=== PATIENT | male | born 1980 | race African-American/Black ===

== ENCOUNTER 2020-11-04 16:36 | Emergency (ER) | payer SELFPAY ==
--- NOTE | 2020-11-04 18:32 | RAD REPORT ---
EXAM DESCRIPTION: RAD - Hand Right 3 View - 11/04/2020 6:18 pm CLINICAL HISTORY: Right hand pain FINDINGS: No fracture or dislocation is seen. Third digit soft tissue swelling. No bony destructive lesions seen
--- NOTE | 2020-11-04 18:37 | ER ---
Nurse's Notes [facility] Name: Dilshad Vasquez Age: 40 yrs Sex: Male : 1980 Arrival Date: 11/04/2020 Time: 16:39 Bed 20 Private MD: Diagnosis: Cutaneous abscess of right hand-felon right middle finger Presentation: 11/04 16:53 Chief complaint: Patient states: Swelling and pain to R third finger that began 1 week ss ago. Coronavirus screen: Vaccine status:. Ebola Screen: Patient denies exposure to infectious person. Patient denies travel to an Ebola-affected area in the 21 days before illness onset. Initial Sepsis Screen: Does the patient meet any 2 criteria? No. Patient's initial sepsis screen is negative. Does the patient have a suspected source of infection? Yes: Skin breakdown/wound. Risk Assessment: Do you want to hurt yourself or someone else? Patient reports no desire to harm self or others. Onset of symptoms is unknown. 16:53 Method Of Arrival: Ambulatory ss 16:53 Acuity: NINI 3 ss Historical: - Allergies: 16:54 unknown shingles medication; ss - Home Meds: 16:54 None [Active]; ss - PMHx: 16:54 None; ss - Immunization history:: Client reports having NOT received the Covid vaccine. - Social history:: Smoking status: Patient reports the use of cigarette tobacco products, smokes one-half pack cigarettes per day. Screenin:14 Abuse screen: Denies threats or abuse. Denies injuries from another. Nutritional tr6 screening: No deficits noted. Tuberculosis screening: No symptoms or risk factors identified. Fall Risk None identified. Assessment: 18:13 General: Appears distressed, uncomfortable, Behavior is cooperative, restless. Pain: tr6 Complains of pain in right middle finger. Neuro: No deficits noted. Cardiovascular: No deficits noted. Respiratory: No deficits noted. GI: No deficits noted. : No deficits noted. EENT: No deficits noted. Derm: Abscess located on right middle finger. Musculoskeletal: No deficits noted. 18:33 Reassessment: attempt to arlette finger by FIDEL Griffin. After partially numbing finger pt tr6 states "you know what, i'll go do this my damn self." FIDEL Griffin clarified with pt that he truly wants to sign out and pt said yes. Patient states symptoms have not improved. 18:46 Reassessment: AMA form filled out and explained. pt verbalized understanding. pt states tr6 "all I need is that betadine". Vital Signs: 16:53 Weight 65.77 kg; Height 5 ft. 4 in. (162.56 cm); Pain 10/10; ss 16:55 BP 127 / 91; Pulse 117; Resp 22; Temp 97.9(TE); Pulse Ox 99% on R/A; ss 16:53 Body Mass Index 24.89 (65.77 kg, 162.56 cm) ED Course: 16:39 Patient arrived in ED. mr 16:54 Triage completed. ss 16:54 Arm band placed on left wrist. ss 18:01 Bossman Griffin NP is PHCP. pm1 18:01 Wes Morris MD is Attending Physician. pm1 18:13 Kitty Arriaga RN is Primary Nurse. tr6 18:14 Pt. is pacing. tr6 18:14 Patient has correct armband on for positive identification. Bed in low position. Call tr6 light in reach. Pulse ox on. NIBP on. Door closed. Noise minimized. Visitors limited. Lights dimmed. Moved to private room. 18:14 No provider procedures requiring assistance completed. Patient did not have IV access tr6 during this emergency room visit. Patient maintains SpO2 saturation greater than 95% on room air. 18:18 Hand Right 3 View XRAY In Process Unspecified. EDMS 18:36 Filiberto Ferrell MD is Referral Physician. pm1 Administered Medications: 18:24 Drug: Tetanus-Diphtheria Toxoid Adult 0.5 ml {Enterprise Resource Analyst: Noah. Exp: tr6 05/24/2022. Lot #: [id number]. } Route: IM; Site: left deltoid; 18:26 Drug: Lidocaine (1 %) 5 ml Volume: 5 ml; Route: Infiltration; vg1 Outcome: 18:34 AMA AMA form signed tr6 18:34 Condition: unchanged 18:34 Instructed on follow up and referral plans. no drinking with medication, medication usage, safety practices, wound care, Demonstrated understanding of instructions, follow-up care, medications, wound care, Prescriptions given X 18:47 Patient left the ED. tr6 Signatures: Dispatcher [employer] RIVERA Wilson, Lynn mr Martin, Marleny, RN RN ss Bossman Griffin, PARK GUARD PARK GUARD pm1 Asia Montenegro, RN RN vg1 iKtty Arriaga RN RN tr6
--- NOTE | 2020-11-04 18:37 | EDPHYS ---
Physician Documentation [facility] Name: Dilshad Vasquez Age: 40 yrs Sex: Male : 1980 Arrival Date: 11/04/2020 Time: 16:39 Bed 20 Private MD: ED Physician Wes Morris HPI: 11/04 18:25 This 40 yrs old Black Male presents to ER via Ambulatory with complaints of Infected pm1 Finger. 18:25 Onset: The symptoms/episode began/occurred 3 day(s) ago. Associated signs and symptoms: pm1 Pertinent negatives: fever. Modifying factors: the patient symptoms are aggravated by touching. The patient has not experienced similar symptoms in the past. The patient has not recently seen a physician. Patient reports onset of swelling to right middle finger post paper cut. Historical: - Allergies: 16:54 unknown shingles medication; ss - Home Meds: 16:54 None [Active]; ss - PMHx: 16:54 None; ss - Immunization history:: Client reports having NOT received the Covid vaccine. - Social history:: Smoking status: Patient reports the use of cigarette tobacco products, smokes one-half pack cigarettes per day. ROS: 18:25 Constitutional: Negative for fever, chills, and weight loss, Cardiovascular: Negative pm1 for chest pain, palpitations, and edema, Respiratory: Negative for shortness of breath, cough, wheezing, and pleuritic chest pain. 18:25 Neuro: Negative for headache, weakness, numbness, tingling, and seizure. 18:25 MS/extremity: Positive for pain, swelling, tenderness, Negative for decreased range of motion, deformity. 18:25 Skin: Positive for swelling, of the palmar aspect of distal phalanx of right middle finger. 18:25 All other systems are negative. Exam: 18:25 Constitutional: This is a well developed, well nourished patient who is awake, alert, pm1 and in no acute distress. Head/Face: Normocephalic, atraumatic. 18:25 Cardiovascular: Exam negative for acute changes, Rate: normal, Rhythm: regular, Pulses: no pulse deficits are appreciated. 18:25 Respiratory: Exam negative for acute changes, respiratory distress, shortness of breath. 18:25 Musculoskeletal/extremity: Extremities: grossly normal except: noted in the palmar aspect of middle phalanx of right middle finger and palmar aspect of distal phalanx of right middle finger: swelling, tenderness, There is no evidence of decreased ROM, deformity. 18:25 Skin: Appearance: normal except for affected area, abscess, Felon present to palmar aspect of distal phalanx of right middle finger. 18:25 Neuro: Exam negative for acute changes, Orientation: is normal, Mentation: is normal, Motor: is normal, moves all fours, Sensation: is normal, no obvious gross deficits, Gait: is steady, at a normal pace, without difficulty. Vital Signs: 16:53 Weight 65.77 kg; Height 5 ft. 4 in. (162.56 cm); Pain 10/10; ss 16:55 BP 127 / 91; Pulse 117; Resp 22; Temp 97.9(TE); Pulse Ox 99% on R/A; ss 16:53 Body Mass Index 24.89 (65.77 kg, 162.56 cm) ss MDM: 18:10 Patient medically screened. pm1 18:32 Refusal of service: The patient/guardian displays adequate decision making capability pm1 and despite a detailed discussion of alternatives, benefits, risks, and consequences refuses: digital block and incision and drainage. Patient wants to leave now but advised him to at least him for antibiotic prescription from me and the need to follow up with hand surgeon. 18:32 Data reviewed: vital signs. Data interpreted: Pulse oximetry: on room air is 99 %. pm1 Interpretation: normal. 11/04 18:03 Order name: Hand Right 3 View XRAY; Complete Time: 18:38 eb 11/04 18:11 Order name: Incision \T\ Drainage Setup; Complete Time: 18:26 pm1 Administered Medications: 18:24 Drug: Tetanus-Diphtheria Toxoid Adult 0.5 ml {Mathematics Improvement Teacher: [employer]. Exp: tr6 05/24/2022. Lot #: [id number]. } Route: IM; Site: left deltoid; 18:26 Drug: Lidocaine (1 %) 5 ml Volume: 5 ml; Route: Infiltration; vg1 Disposition Summary: 11/04/20 18:37 Left Against Medical Advice Location: Home pm1 Problem: new pm1 Symptoms: are unchanged pm1 Condition: Undetermined pm1 Diagnosis - Cutaneous abscess of right hand - felon right middle finger pm1 Followup: pm1 - With: Emergency Department - When: As needed - Reason: Worsening of condition Followup: pm1 - With: Filiberto Ferrell MD - When: Tomorrow - Reason: Recheck today's complaints, Continuance of care, Re-evaluation by your physician Discharge Instructions: - Discharge Summary Sheet pm1 - Kait pm1 Prescriptions: - Cephalexin 500 mg Oral Capsule - take 1 capsule by ORAL route every 6 hours for 10 days; 40 capsule; Refills: 0, pm1 Product Selection Permitted - Bactrim DS 800-160 mg Oral Tablet - take 1 tablet by ORAL route every 12 hours for 10 days; 20 tablet; Refills: 0, pm1 Product Selection Permitted - Diclofenac Sodium 75 mg Oral Tablet Sustained Release - take 1 tablet by ORAL route 2 times per day; 30 tablet; Refills: 0, Product pm1 Selection Permitted Addendum: 11/05/2020 20:37 Co-signature as Attending Physician, Wes villanueva a2 Signatures: Dispatcher [employer] EDMarleny Partida, RN RN ss Bossman Griffin, YARD GOODS SALESPERSON YARD GOODS SALESPERSON pm1 Wes Morris MD MD ma2 Asia Montenegro, RN RN vg1 Kitty Arriaga RN RN tr6
[2020-11-04] MEDS ORDERED: TETANUS & DIPHTHERIA TOX,ADULT 0.5 ML VIAL ONE (18:40)
[2020-11-04] MEDS ORDERED: LIDOCAINE 1% MPF 5 ML VIAL ONE (18:40)
[2020-11-04 19:00] VITALS: BP 127/91; TEMP 97.9; O2SAT 99
== END 2020-11-04 18:47 | disposition left against medical advice (07) ==
LOC: ER 16:36
PROC: 0H9FXZZ Drainage of Right Hand Skin, External Approach (ICD-10-PCS; principal; 2020-11-04)
DX: L02.511 Cutaneous abscess of right hand (principal); L03.011 Cellulitis of right finger; F17.210 Nicotine dependence, cigarettes, uncomplicated; Z23 Encounter for immunization
CPT/HCPCS: 90471; 90714; 99284